=== PATIENT | female | born 1990 | race Caucasian/White ===

== ENCOUNTER 2023-11-08 10:09 | Observation (INO) | payer MEDICAID ==
[2023-11-08 11:04] LABS: Hemoglobin 11.4 g/dL (12.0-15.5); MDiff Complete? YES; Mean Corpuscular HGB CONC 33.5 g/dL (32.0-36.0); Mean Corpuscular Hemoglobin 31.2 pg (27.0-33.0); Mean Corpuscular Volume 93.2 fl (81.6-98.3); Mean Platelet Volume 10.8 fl (7.4-10.4); Platelet Count 297 10x3/uL (150-450); RBC Distribution Width 13.6 % (11.5-14.5); Red Blood Cell (RBC) Count 3.65 10x6/uL (3.90-5.03)
[2023-11-08 11:06] LABS: BHCG - Serum POSITIVE (NEGATIVE); Pregs Control Background? CLEAR/WHITE (CLR/WHITE); Pregs Control Bar Appear? YES (CONTROL BAR)
[2023-11-08 11:09] LABS: ALT (SGPT) 14 U/L (8-55); AST (SGOT) 14 U/L (5-34); Albumin 3.6 g/dL (3.5-5.0); Alkaline Phosphatase 69 U/L (40-110); Anion Gap 11 mmol/L (10-20); BUN (Urea Nitrogen) 12 mg/dL (7.0-18.7); Bilirubin, Total 0.7 mg/dL (0.2-1.2); Calc. Creatinine Clearance 0 mL/min (70-130); Carbon Dioxide 22 mmol/L (22-29); Chloride 109 mmol/L (98-107); Estimated GFR 98; Globulin 2.9 g/dL (2.4-3.5); Glucose 97 mg/dL (70-105); Potassium 4.3 mmol/L (3.5-5.1); Protein, Total 6.5 g/dL (6.0-8.3); Sodium 138 mmol/L (136-145)
[2023-11-08] MEDS ORDERED: Sodium Chloride 0.9% 1,000 ML IV SCH (11:30)
[2023-11-08 11:34] LABS: Bilirubin Neg (Negative); Blood, Urine 250 (Negative); CAUTI Indications for Culture Pregnancy; Clarity Cloudy (Clear); Glucose, Urine (Dipstick) Normal (Negative); Ketone, Urine 15 mg/dL (Negative); Leukocyte Negative (Negative); Nitrite Negative (Negative); Protein, Urine (Dipstick) 500 mg/dl (Neg-Trace); RBC/HPF Greater than 50 HPF (0-3); Specific Gravity, Urine 1.025 (1.005-1.030); Urobilinogen Normal mg/dL (Less than 2); WBC/HPF 0-3 HPF (0-3); pH, Urine 6.5 (5.0-9.0)
[2023-11-08 11:35] LABS: Squamous Epithelial 0-3 HPF (0-3); Urine Culture Reflex Yes Yes
[2023-11-08] MEDS ORDERED: cefTRIAXone (ROCEPHIN) 1 GM VIAL ONE (11:37)
[2023-11-08 11:40] LABS: Bacteria/HPF Rare-Few HPF (None Seen)
[2023-11-08 11:41] LABS: Amphetamine Not Detected (NotDetected); Barbiturates Screen Not Detected (NotDetected); Benzodiazepine Screen Not Detected (NotDetected); Calcium Oxalate Crystals Rare HPF (None Seen); Cocaine Metabolite Screen Not Detected (NotDetected); Methadone Not Detected (NotDetected); Methamphetamine Not Detected (NotDetected); Opiate Screen Not Detected (NotDetected); Oxycodone Screen Not Detected (NotDetected); Phencyclidine (PCP) Not Detected (NotDetected); THC/Cannabinoid Screen Detected (NotDetected); Tricyclic Screen Detected (NotDetected)
[2023-11-08 11:50] LABS: Band 3 % (5-11); Eosinophils 1 % (0-10); Lymphocytes 29 % (21-51); Monocytes 6 % (0-10); Neutrophil 55 % (42-75); Reactive Lymphocytes 6 % (0-10)
[2023-11-08 11:51] LABS: RBC Morph Comment Within Normal Limits
[2023-11-08] MEDS ORDERED: Misoprostol 200 MCG TAB PR PRN (13:12)
[2023-11-08] MEDS ORDERED: PROPOFOL 20 ML ONE (13:19)
[2023-11-08] MEDS ORDERED: fentaNYL 50 mcg/mL 1 mL Vial ONE ×3 (13:19→14:42)
[2023-11-08] MEDS ORDERED: Midazolam HCl 2 mg/2 ml Vial ONE (13:19)
[2023-11-08] MEDS ORDERED: Lidocaine 1% PF 5 ML VIAL ONE (13:19)
[2023-11-08] MEDS ORDERED: Glycopyrrolate 0.2 MG/ML 5 ML SYRINGE ONE (13:22)
[2023-11-08] MEDS ORDERED: PHENYLEPHRINE-NS 100 MCG/ML 10 ML SYRINGE ONE (13:37)
[2023-11-08] MEDS ORDERED: Tranexamic Acid 1,000 MG/10 ML VIAL ONE (13:39)
[2023-11-08] MEDS ORDERED: Misoprostol 200 MCG TAB ONE (13:39)
[2023-11-08] MEDS ORDERED: Methylergonovine 0.2 MG/ML VIAL ONE (13:40)
[2023-11-08] MEDS ORDERED: Carboprost 250 MCG/ML AMP ONE (13:40)
[2023-11-08] MEDS ORDERED: Acetaminophen 325 MG TAB PO PRN (14:19)
[2023-11-08] MEDS ORDERED: Naloxone HCl 0.4 mg/ml Vial IVP PRN (14:19)
[2023-11-08] MEDS ORDERED: Ondansetron PF 4 MG/2 ML Vial IVP PRN ×2 (14:19→15:20)
[2023-11-08] MEDS ORDERED: Meperidine HCl/PF 25 MG (1 mL) VIAL ONE (14:21)
[2023-11-08] MEDS: Lactated Ringer's 1,000 ML IV SCH (15:28)
[2023-11-08] MEDS: cefTRIAXone\\ROCEPHIN 1 GM in Sodium Chloride 0.9% 100 ML IVPB SCH (16:25)
[2023-11-08 17:42] VITALS: BMI 29.7
[2023-11-08] MEDS: Acetaminophen 500 MG TAB PO SCH (18:17)
[2023-11-08] MEDS: Ibuprofen 600 MG TAB PO SCH (18:17)
[2023-11-08] MEDS: Sertraline 100 MG TAB PO SCH (20:53)
[2023-11-08] MEDS: Doxycycline 100 MG CAP PO SCH (20:53)
[2023-11-08] MEDS: Topiramate 25 MG TAB PO SCH (20:54)
[2023-11-09] MEDS: HYDROcodone/Acetaminophen 5/325 mg Tablet PO SCH (00:28)
[2023-11-09] MEDS: Simethicone Chewable 80 MG TAB PO PRN (00:28)
[2023-11-09 04:06] LABS: #Basophils 0.01 10x3/uL (0.0-0.2); #Eosinphils 0.04 10x3/uL (0.0-0.5); #Monocytes 0.53 10x3/uL (0.0-1.1); #Neutrophils 5.23 10x3/uL (1.5-8.4); %Basophils 0.1 % (0.0-2.0); %Eosinophils 0.5 % (0.0-6.0); %Lymphocytes 32.7 % (18.0-47.0); %Monocytes 6.1 % (0.0-10.0); %Neutrophils 60.3 % (40.0-75.0); Hematocrit 20.5 % (34.9-44.5); Hemoglobin 6.9 g/dL (12.0-15.5); Mean Corpuscular HGB CONC 33.7 g/dL (32.0-36.0); Mean Corpuscular Hemoglobin 31.4 pg (27.0-33.0); Mean Corpuscular Volume 93.2 fl (81.6-98.3); Mean Platelet Volume 10.8 fl (7.4-10.4); Platelet Count 195 10x3/uL (150-450); RBC Distribution Width 13.5 % (11.5-14.5); White Blood Cell (WBC) Count 8.7 10x3/uL (3.5-10.5)
[2023-11-09] MEDS: Cyclobenzaprine 10 MG TAB PO SCH (06:28)
[2023-11-09] MEDS: Levothyroxine Sodium 100 MCG TAB PO SCH (06:28)
[2023-11-09] MEDS: Ferrous Gluconate 324 MG TAB PO SCH (09:39)
[2023-11-09] MEDS: Pantoprazole DR 40 MG TAB PO SCH (09:39)
[2023-11-09] MEDS: Aripiprazole 10 MG TAB PO SCH (09:40)
[2023-11-09 10:16] LABS: Hematocrit 22.3 % (34.9-44.5); Hemoglobin 7.5 g/dL (12.0-15.5)
[2023-11-09 11:14] VITALS: BP 100/46; TEMP 98.1
== END 2023-11-09 13:10 | disposition home or self-care (01) ==
LOC: CSHERS 10:09 → CSHSDC 12:40 → CSHPP 14:57
PROVIDERS: ADMIT Obstetrics & Gynecology; ATTEND Obstetrics & Gynecology
PROC: 10D17ZZ Extraction of Products of Conception, Retained, Via Natural or Artificial Opening (ICD-10-PCS; principal; 2023-11-09)
DX: O02.1 Missed abortion (principal); D50.0 Iron deficiency anemia secondary to blood loss (chronic); J45.909 Unspecified asthma, uncomplicated; F31.9 Bipolar disorder, unspecified; F41.9 Anxiety disorder, unspecified; G43.909 Migraine, unspecified, not intractable, without status migrainosus; G62.9 Polyneuropathy, unspecified; A52.8 Late syphilis, latent; E03.9 Hypothyroidism, unspecified; E66.9 Obesity, unspecified; R00.1 Bradycardia, unspecified; Z98.84 Bariatric surgery status; Z98.890 Other specified postprocedural states; F17.210 Nicotine dependence, cigarettes, uncomplicated; Z88.8 Allergy status to other drugs, medicaments and biological substances; Z79.899 Other long term (current) drug therapy; Z79.890 Hormone replacement therapy; Z68.29 Body mass index [BMI] 29.0-29.9, adult; R10.31 Right lower quadrant pain; D64.9 Anemia, unspecified; Z55.6 Problems related to health literacy
CPT/HCPCS: 36415; 36430; 74177; 76856; 80053; 80306; 80307; 81001; 84703; 85025; 86850; 86900; 86901; 87086; 88305; 93976; J0696; J2175; J2210; J2250; J2704; J3010; J3490; J7050; P9016; Q9967

== ENCOUNTER 2023-11-09 23:35 | Emergency (ER) | payer MEDICAID ==
[2023-11-10 00:13] LABS: #Basophils 0.02 10x3/uL (0.0-0.2); #Eosinphils 0.08 10x3/uL (0.0-0.5); #Monocytes 0.41 10x3/uL (0.0-1.1); #Neutrophils 2.98 10x3/uL (1.5-8.4); %Basophils 0.3 % (0.0-2.0); %Eosinophils 1.3 % (0.0-6.0); %Lymphocytes 44.6 % (18.0-47.0); %Monocytes 6.5 % (0.0-10.0); %Neutrophils 47.1 % (40.0-75.0); Hematocrit 22.5 % (34.9-44.5); Hemoglobin 7.5 g/dL (12.0-15.5); Mean Corpuscular HGB CONC 33.3 g/dL (32.0-36.0); Mean Corpuscular Hemoglobin 31.5 pg (27.0-33.0); Mean Corpuscular Volume 94.5 fl (81.6-98.3); Platelet Count 213 10x3/uL (150-450); RBC Distribution Width 14.6 % (11.5-14.5); Red Blood Cell (RBC) Count 2.38 10x6/uL (3.90-5.03); White Blood Cell (WBC) Count 6.3 10x3/uL (3.5-10.5)
[2023-11-10 00:24] LABS: ALT (SGPT) 10 U/L (8-55); AST (SGOT) 13 U/L (5-34); Alkaline Phosphatase 63 U/L (40-110); Anion Gap 11 mmol/L (10-20); BUN (Urea Nitrogen) 14 mg/dL (7.0-18.7); Bilirubin, Total Less than 0.2 mg/dL (0.2-1.2); Calc. Creatinine Clearance 0 mL/min (70-130); Calcium 7.9 mg/dL (7.8-10.44); Carbon Dioxide 20 mmol/L (22-29); Chloride 114 mmol/L (98-107); Estimated GFR 101; Globulin 2.2 g/dL (2.4-3.5); Glucose 91 mg/dL (70-105); Potassium 3.7 mmol/L (3.5-5.1); Protein, Total 5.2 g/dL (6.0-8.3); Sodium 141 mmol/L (136-145)
[2023-11-10 02:42] LABS: Bilirubin Neg (Negative); Blood, Urine 150 (Negative); Clarity Clear (Clear); Glucose, Urine (Dipstick) Normal (Negative); Ketone, Urine Negative (Negative); Leukocyte 25 (Negative); Nitrite Negative (Negative); Protein, Urine (Dipstick) Negative (Neg-Trace); Specific Gravity, Urine 1.015 (1.005-1.030); Urobilinogen Normal mg/dL (Less than 2)
[2023-11-10 03:00] LABS: Bacteria/HPF Rare-Few HPF (None Seen); CAUTI Indications for Culture Pelvic or flank pain; RBC/HPF 0-3 HPF (0-3); Squamous Epithelial 0-3 HPF (0-3); Transitional Epithelial 0-3 HPF (None Seen); WBC/HPF 0-3 HPF (0-3)
[2023-11-10 03:01] LABS: Urine Culture Reflex No No
== END 2023-11-10 03:43 | disposition home or self-care (01) ==
LOC: CSHERS 23:35
DX: R10.31 Right lower quadrant pain (principal); D64.9 Anemia, unspecified; F17.210 Nicotine dependence, cigarettes, uncomplicated; Z55.6 Problems related to health literacy
CPT/HCPCS: 36415; 74177; 80053; 81001